=== PATIENT | female | born 2005 | race Two or more races ===

== ENCOUNTER 2024-12-23 14:47 | Emergency (ER) | payer OTHER ==
[~2024-12-23] VITALS: Ht 154.9 cm; Wt 47.6 kg
[2024-12-23] MEDS ORDERED: ZOVIRAX400 MG PO (16:49)
[2024-12-23] MEDS ORDERED: NASAL MIST126 ML (16:51)
== END 2024-12-23 17:17 | disposition home or self-care (01) ==
LOC: ER 14:47 → EMR PED 15:03 → ER 15:03 → EMR PED 17:17
DX: A60.09 Herpesviral infection of other urogenital tract (principal); Z88.6 Allergy status to analgesic agent